=== PATIENT | male | born 1985 | race Caucasian/White ===

== ENCOUNTER 2019-05-31 15:14 | Emergency (ER) | payer BC ==
[~2019-05-31] VITALS: Ht 160 cm; Wt 68.0 kg
[2019-05-31] MEDS ORDERED: INMODIUN (15:32)
== END 2019-06-01 00:26 | disposition home or self-care (01) ==
LOC: ER 15:14
DX: K57.90 Diverticulosis of intestine, part unspecified, without perforation or abscess without bleeding (principal); K52.9 Noninfective gastroenteritis and colitis, unspecified; R50.9 Fever, unspecified

== ENCOUNTER 2019-06-11 08:03 | Outpatient (CLI) | payer BC ==
[~2019-06-11 08:03] MED LIST: INMODIUN
== END 2019-06-11 08:13 | disposition home or self-care (01) ==
LOC: LAB 08:03
DX: M54.5 Low back pain (principal); Z01.810 Encounter for preprocedural cardiovascular examination; K80.50 Calculus of bile duct without cholangitis or cholecystitis without obstruction; Z12.11 Encounter for screening for malignant neoplasm of colon

== ENCOUNTER 2019-06-11 09:38 | Outpatient (CLI) | payer BC | END 2019-06-11 12:36 | disposition home or self-care (01) | LOC: MRI 09:38 | DX: M54.5 Low back pain (principal); K80.50 Calculus of bile duct without cholangitis or cholecystitis without obstruction; Z01.810 Encounter for preprocedural cardiovascular examination | CPT/HCPCS: 74181 ==

== ENCOUNTER 2019-10-15 12:16 | Outpatient (CLI) | payer OTHER | END 2019-10-15 12:22 | disposition home or self-care (01) | LOC: LAB 12:16 | PROVIDERS: ATTEND Internal Medicine | DX: K80.50 Calculus of bile duct without cholangitis or cholecystitis without obstruction (principal); M54.5 Low back pain; Z01.812 Encounter for preprocedural laboratory examination ==

== ENCOUNTER → 2020-06-22 07:27 | Outpatient (CLI) | payer OTHER | END | disposition home or self-care (01) | LOC: LAB 07:27 | PROVIDERS: ATTEND Obstetrics & Gynecology | DX: O99.283 Endocrine, nutritional and metabolic diseases complicating pregnancy, third trimester (principal); E03.8 Other specified hypothyroidism; Z3A.40 40 weeks gestation of pregnancy ==

== ENCOUNTER → 2020-06-22 | Outpatient (CLI) | payer OTHER | END | disposition home or self-care (01) | LOC: SONOGRAMA 14:13 → MAMO-SONO 14:15 | PROVIDERS: ATTEND Obstetrics & Gynecology | DX: N92.1 Excessive and frequent menstruation with irregular cycle (principal); R10.2 Pelvic and perineal pain ==

== ENCOUNTER → 2020-07-01 | Outpatient (CLI) | payer OTHER | END | disposition home or self-care (01) | LOC: LAB 12:40 | PROVIDERS: ATTEND Student in an Organized Health Care Education/Training Program | DX: Z34.01 Encounter for supervision of normal first pregnancy, first trimester (principal) ==

== ENCOUNTER 2020-07-07 13:29 | Outpatient (CLI) | payer OTHER | END 2020-07-07 16:00 | disposition home or self-care (01) | LOC: LAB 13:29 | PROVIDERS: ATTEND Student in an Organized Health Care Education/Training Program | DX: Z34.00 Encounter for supervision of normal first pregnancy, unspecified trimester (principal); N39.8 Other specified disorders of urinary system ==

== ENCOUNTER 2020-08-05 07:40 | Outpatient (CLI) | payer OTHER | END 2020-08-05 07:59 | disposition home or self-care (01) | LOC: LAB 07:40 | PROVIDERS: ATTEND Student in an Organized Health Care Education/Training Program | DX: Z34.01 Encounter for supervision of normal first pregnancy, first trimester (principal) ==

== ENCOUNTER → 2020-08-12 | Outpatient (CLI) | payer OTHER | END | disposition home or self-care (01) | LOC: PRENATAL 09:30 | PROVIDERS: ATTEND Obstetrics & Gynecology Maternal & Fetal Medicine | DX: Z36.89 Encounter for other specified antenatal screening (principal); O99.891 Other specified diseases and conditions complicating pregnancy; O36.80X1 Pregnancy with inconclusive fetal viability, fetus 1; Z3A.12 12 weeks gestation of pregnancy ==

== ENCOUNTER 2020-09-16 12:05 | Emergency (ER) | payer OTHER ==
[~2020-09-16] VITALS: Ht 160 cm; Wt 75.3 kg
[2020-09-16] MEDS ORDERED: LEVOTHYROXINE50 MC1 (12:20)
== END 2020-09-16 14:37 | disposition home or self-care (01) ==
LOC: ER 12:05
DX: O46.8X2 Other antepartum hemorrhage, second trimester (principal); Z3A.17 17 weeks gestation of pregnancy

== ENCOUNTER 2020-09-24 13:40 | Outpatient (CLI) | payer OTHER ==
[~2020-09-24 13:40] MED LIST changes: +LEVOTHYROXINE50 MC1
== END 2020-09-24 13:50 | disposition home or self-care (01) ==
LOC: LAB 13:40
PROVIDERS: ATTEND Student in an Organized Health Care Education/Training Program
DX: N39.0 Urinary tract infection, site not specified (principal); E03.8 Other specified hypothyroidism

== ENCOUNTER 2020-11-12 08:08 | Outpatient (CLI) | payer OTHER | END 2020-11-12 09:05 | disposition home or self-care (01) | LOC: PRENATAL 08:08 | PROVIDERS: ATTEND Obstetrics & Gynecology Maternal & Fetal Medicine | DX: O35.0XX1 Maternal care for (suspected) central nervous system malformation in fetus, fetus 1 (principal); O35.3XX1 Maternal care for (suspected) damage to fetus from viral disease in mother, fetus 1; O98.512 Other viral diseases complicating pregnancy, second trimester; O09.522 Supervision of elderly multigravida, second trimester; O99.891 Other specified diseases and conditions complicating pregnancy; O44.02 Complete placenta previa NOS or without hemorrhage, second trimester; Z36.89 Encounter for other specified antenatal screening; Z3A.25 25 weeks gestation of pregnancy ==

== ENCOUNTER → 2020-11-17 08:11 | Outpatient (CLI) | payer OTHER | END | disposition home or self-care (01) | LOC: LAB 08:11 | PROVIDERS: ATTEND Obstetrics & Gynecology | DX: Z34.82 Encounter for supervision of other normal pregnancy, second trimester (principal) ==

== ENCOUNTER → 2020-11-23 08:41 | Outpatient (CLI) | payer OTHER | END | disposition home or self-care (01) | LOC: LAB 08:41 | PROVIDERS: ATTEND Obstetrics & Gynecology | DX: Z34.02 Encounter for supervision of normal first pregnancy, second trimester (principal) ==

== ENCOUNTER 2020-12-01 09:04 | Outpatient (CLI) | payer OTHER | END 2020-12-01 09:34 | disposition home or self-care (01) | LOC: LAB 09:04 | PROVIDERS: ATTEND Obstetrics & Gynecology | DX: E03.8 Other specified hypothyroidism (principal); Z34.02 Encounter for supervision of normal first pregnancy, second trimester ==